=== PATIENT | male | born 1995 | race Caucasian/White ===

== ENCOUNTER 2018-01-20 11:08 | Emergency (ER) | payer OTHER, BC ==
[2018-01-20] MEDS ORDERED: Ketorolac 60 MG/2 ML SDV IM ONE (12:27)
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
[2018-01-20 14:33] VITALS: BP 111/59
--- NOTE | 2018-01-21 14:30 | CT ---
EXAM DATE: 01/20/18 PATIENT'S AGE: 22 Patient: MONA PARMAR Facility: [place], [place] Site . Site : 1996 Study: CT Facial wo cont [id number]/[id number] 12:49:37 PM Ordering Physician: Rowan Newsome Final Report: Indication: Trauma. Left-sided jaw pain. Technique: Noncontrast axial CT of the facial bones with coronal reformats are provided. No comparisons. Findings: Near-complete opacification of right sphenoid sinus. The remainder of the visualized paranasal sinuses are clear. The ostiomeatal complexes are patent bilaterally. The visualized intraorbital contents appear within normal limits. There is an oblique nondisplaced fracture of the left mandible dorsal to the coronoid process. Soft tissue swelling overlying the left mandible compatible with history of trauma. Remainder of the osseous structures appear within normal limits. Impression: 1. Oblique non-displaced fracture of the left mandible dorsal to the coronoid process. 2. Soft tissue swelling overlying the left mandible. 3. Right sphenoid sinusitis. 4. Preliminary results were called to ordering doctor at 1314 hours Dictated by Bruce Garrett MD @ 01/20/2018 1:16:18 PM Please note that all CT scans at this facility use dose modulation, iterative reconstruction, and/or weight-based dosing when appropriate to reduce radiation dose to as low as reasonably achievable. Dictated by: Bruce Garrett MD @ 01/20/2018 13:16:32 (Electronic Signature) Report Signed by Proxy. [facility]ITAL[facility]
== END 2018-01-20 14:18 | disposition home or self-care (01) ==
LOC: MW.ED 11:08
DX: S02.622A Fracture of subcondylar process of left mandible, initial encounter for closed fracture (principal); Y04.0XXA Assault by unarmed brawl or fight, initial encounter
CPT/HCPCS: 70486; 96372; 99284; J1885; 99283

== ENCOUNTER 2019-06-24 14:25 | Emergency (ER) | payer BC, OTHER ==
[2019-06-24 14:29] VITALS: BP 148/78; PULSE 76
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
[2019-06-24] MEDS ORDERED: Ketorolac 60 MG/2 ML SDV IM ONE (14:36)
--- NOTE | 2019-06-24 15:09 | CR ---
Right shoulder: Two views of the right shoulder were obtained. Comparison: No previous shoulder study. Glenohumeral joint and acromioclavicular joint appears unremarkable. No fracture or other bony abnormality is seen. Impression: No abnormality is seen on two-view right shoulder study. Diagnostic code #1 MTDD
--- NOTE | 2019-06-24 15:13 | CR ---
Chest: Portable view of the chest was obtained. Comparison: No prior chest x-rays available. Heart size and mediastinum are normal. Lungs are clear. Bony structures appear grossly intact. Impression: Nothing acute is appreciated on portable chest x-ray. Diagnostic code #1 MTDD
--- NOTE | 2019-06-24 15:30 | CR ---
Right elbow: Three views of the right elbow were obtained. Comparison: No previous elbow study. Joint spaces are preserved. No joint effusion is seen. No fracture or other bony abnormality is seen. Impression: No abnormality is appreciated on right elbow study. Diagnostic code #1 MTDD
--- NOTE | 2019-06-24 15:48 | CR ---
Right hand: Two views of the right hand were obtained. Comparison: No previous exams study. Joint spaces are preserved. No fracture or other bony abnormality is seen. Impression: No abnormality is appreciated on two-view right hand exam. Diagnostic code #1 MTDD
--- NOTE | 2019-06-24 15:49 | CR ---
Right wrist: Two views of the right wrist were obtained. Comparison: No prior wrist exam. Joint spaces are maintained. No fracture or other bony abnormality is seen. Impression: No abnormality is identified on two-view right wrist exam. Diagnostic code #1 MTDD
== END 2019-06-24 16:10 | disposition home or self-care (01) ==
LOC: MW.ED 14:25
DX: S40.211A Abrasion of right shoulder, initial encounter (principal); W20.8XXA Other cause of strike by thrown, projected or falling object, initial encounter
CPT/HCPCS: 71045; 73030; 73080; 73100; 73120; 96372; 99283; J1885